=== PATIENT | female | born 1960 | race Two or more races ===

== ENCOUNTER 2024-07-10 23:45 | Emergency (ER) | payer OTHER ==
[2024-07-10 23:53] VITALS: RESP 18; TEMP 98.2
[2024-07-11 01:10] LABS: Influenza A Not Detected (Not Detectd); Influenza B Not Detected (Not Detectd); RSV Not Detected (Not Detectd)
--- NOTE | 2024-07-11 01:10 | ED ---
General Adult HPI - General Source: patient, RN notes reviewed Mode of arrival: wheelchair Limitations: no limitations <Juju Urena - Last Filed: 07/11/24 17:59> <Feliberto Warren - Last Filed: 07/15/24 13:23> - General Chief complaint: Upper Respiratory Infection Stated complaint: Eye irritation, scratchy throat Time Seen by Provider: 07/11/24 00:12 - History of Present Illness Initial comments: 63-year-old female presents to the emergency department for evaluation of not feeling well and throat irritation. Patient notes that she has not been feeling well for around a week. She states that she was started on antibiotic eyedrops a week ago for suspected conjunctivitis. She notes that she continues to have some left eye irritation. She states that 3 days ago she started experiencing some throat irritation and foreign body sensation. She denies any recent fever, chills. Admits to nausea without vomiting. (Juju Urena) - Related Data Allergies Allergy/AdvReac Type Severity Reaction Status Date / Time latex Allergy Rash/Hives Verified 07/10/24 23:53 hydromorphone [From Dilaudid] AdvReac Chest Pain Verified 07/10/24 23:53 ketorolac [From Toradol] AdvReac Chest Pain Verified 07/10/24 23:53 Review of Systems ROS Other: All systems not noted in ROS Statement are negative. <Juju Urena - Last Filed: 07/11/24 17:59> ROS Other: All systems not noted in ROS Statement are negative. <Feliberto Warren - Last Filed: 07/15/24 13:23> ROS Statement: Those systems with pertinent positive or pertinent negative responses have been documented in the HPI. Past Medical History Past Medical History: Hyperlipidemia, Hypertension Additional Past Medical History / Comment(s): "irregular heartbeat" History of Any Multi-Drug Resistant Organisms: None Reported Past Surgical History: Section, Hysterectomy, Joint Replacement, Orthopedic Surgery Additional Past Surgical History / Comment(s): partial hysterectomy Past Psychological History: Depression Smoking Status: Never smoker Past Alcohol Use History: None Reported Past Drug Use History: None Reported <Juju Urena - Last Filed: 07/11/24 17:59> General Exam Limitations: no limitations General appearance: alert, in no apparent distress Head exam: Present: atraumatic, normocephalic, normal inspection Eye exam: Present: normal appearance, PERRL, EOMI. Absent: scleral icterus, conjunctival injection, periorbital swelling ENT exam: Present: normal exam, mucous membranes moist Neck exam: Present: normal inspection, full ROM. Absent: tenderness, meningismus, lymphadenopathy Respiratory exam: Present: normal lung sounds bilaterally. Absent: respiratory distress, wheezes, rales, rhonchi, stridor Cardiovascular Exam: Present: regular rate, normal rhythm, normal heart sounds. Absent: systolic murmur, diastolic murmur, rubs, gallop, clicks Extremities exam: Present: normal inspection, full ROM, normal capillary refill. Absent: tenderness, pedal edema, joint swelling, calf tenderness Back exam: Present: normal inspection Neurological exam: Present: alert, oriented X3 Psychiatric exam: Present: normal affect, normal mood Skin exam: Present: warm, dry, intact, normal color. Absent: rash <Juju Urena - Last Filed: 07/11/24 17:59> Course Vital Signs 07/10/24 07/11/24 23:48 04:38 Temperature 98.2 F Pulse Rate 77 72 Respiratory 18 18 Rate Blood Pressure 160/83 117/65 O2 Sat by Pulse 97 97 Oximetry Medical Decision Making - Lab Data Result diagrams: 07/11/24 00:05 07/11/24 00:05 <Juju Urena - Last Filed: 07/11/24 17:59> - Lab Data Result diagrams: 07/11/24 00:05 07/11/24 00:05 <Feliberto Warren - Last Filed: 07/15/24 13:23> - Medical Decision Making Was pt. sent in by a medical professional or institution (, PA, BOX SEALING MACHINE CATCHER, urgent care, hospital, or snf...) When possible be specific @ -[No] Did you speak to anyone other than the patient for history (EMS, parent, family, police, friend...)? What history was obtained from this source @ -[No] Did you review nursing and triage notes (agree or disagree)? Why? @ -[I reviewed and agree with nursing and triage notes] Were old charts reviewed (outside hosp., previous admission, EMS record, old EKG, old radiological studies, urgent care reports/EKG's, snf records)? Report findings @ -[No old charts were reviewed] Differential Diagnosis (chest pain, altered mental status, abdominal pain women, abdominal pain men, vaginal bleeding, weakness, fever, dyspnea, syncope, headache, dizziness, GI bleed, back pain, seizure, CVA, palpatations, mental h ealth, musculoskeletal)? @ -[COVID, influenza, RSV, conjunctivitis, esophagitis, retropharyngeal a bscess, this list is not all inclusive] EKG interpreted by me (3pts min.). @ -[None] X-rays interpreted by me (1pt min.). @ -[X-ray soft tissue neck shows no acute process] CT interpreted by me (1pt min.). @ -[None done] U/S interpreted by me (1pt. min.). @ -[None done] What testing was considered but not performed or refused? (CT, X-rays, U/S, labs)? Why? @ -[None] What meds were considered but not given or refused? Why? @ -[None] Did you discuss the management of the patient with other professionals (professionals i.e. , PA, BOX SEALING MACHINE CATCHER, lab, RT, psych nurse, social service liaison, outplacement consultant, teacher, navigation officer, dependency case manager)? Give summary @ -[No] Was smoking cessation discussed for >3mins.? @ -[No] Was critical care preformed (if so, how long)? @ -[No] Were there social determinants of health that impacted care today? How? (Homelessness, low income, unemployed, alcoholism, drug addiction, transportation, low edu. Level, literacy, decrease access to med. care, long-term, rehab)? @ -[No] Was there de-escalation of care discussed even if they declined (Discuss DNR or withdrawal of care, Hospice)? DNR status @ -[No] What co-morbidities impacted this encounter? (DM, HTN, Smoking, COPD, CAD, Cancer, CVA, ARF, Chemo, Hep., AIDS, mental health diagnosis, sleep apnea, morbid obesity)? @ -[None] Was patient admitted / discharged? Hospital course, mention meds given and route, prescriptions, significant lab abnormalities, going to OR and other pertinent info. @ -[Patient presented to the emergency department for overall not feeling well and foreign body sensation in her throat when swallowing.Initially patient was tested for COVID, influenza, RSV which were negative. Laboratory studies were then obtained revealing no significant leukocytosis, hemoglobin 12.4; CMP on actionable at this time. X-ray of the soft tissue neck was obtained revealing no acute process. ] Undiagnosed new problem with uncertain prognosis? @ -[No] Drug Therapy requiring intensive monitoring for toxicity (Heparin, Nitro, Insulin, Cardizem)? @ -[No] Were any procedures done? @ -[No] Diagnosis/symptom? @ -[] Acute, or Chronic, or Acute on Chronic? @ -[default] Uncomplicated (without systemic symptoms) or Complicated (systemic symptoms)? @ -[default] Side effects of treatment? @ -[No] Exacerbation, Progression, or Severe Exacerbation? @ -[No] Poses a threat to life or bodily function? How? (Chest pain, [place], [place], pneumonia, PE, COPD, DKA, ARF, appy, cholecystitis, CVA, Diverticulitis, Homicidal, Suicidal, threat to staff... and all critical care pts) @ -[No] (Juju Urena) - Lab Data Lab Results 07/11/24 07/11/24 07/11/24 Range/Units 00:05 00:05 00:15 WBC 7.8 (3.8-10.6) k/uL RBC 3.95 (3.80-5.40) m/uL Hgb 12.4 (11.4-16.0) gm/dL Hct 37.4 (34.0-46.0) % MCV 94.7 (80.0-100.0) fL MCH 31.4 (25.0-35.0) pg MCHC 33.2 (31.0-37.0) g/dL RDW 12.1 (11.5-15.5) % Plt Count 263 (150-450) k/uL MPV 8.6 Neutrophils % 47 % Lymphocytes % 43 % Monocytes % 6 % Eosinophils % 2 % Basophils % 1 % Neutrophils # 3.7 (1.3-7.7) k/uL Lymphocytes # 3.4 (1.0-4.8) k/uL Monocytes # 0.5 (0-1.0) k/uL Eosinophils # 0.1 (0-0.7) k/uL Basophils # 0.0 (0-0.2) k/uL Sodium 135 L (137-145) mmol/L Potassium 4.8 (3.5-5.1) mmol/L Chloride 103 (98-107) mmol/L Carbon Dioxide 21 L (22-30) mmol/L Anion Gap 11 mmol/L BUN 15 (7-17) mg/dL Creatinine 0.67 (0.52-1.04) mg/dL Est GFR (CKD-EPI)AfAm >90 (>60 ml/min/1.73 sqM) Est GFR (CKD-EPI)NonAf >90 (>60 ml/min/1.73 sqM) Glucose 97 (74-99) mg/dL Calcium 9.4 (8.4-10.2) mg/dL Total Bilirubin 0.5 (0.2-1.3) mg/dL AST 34 (14-36) U/L ALT 20 (4-34) U/L Alkaline Phosphatase 94 (38-126) U/L Total Protein 7.5 (6.3-8.2) g/dL Albumin 4.2 (3.5-5.0) g/dL Influenza Type A (PCR) Not Detected (Not Detectd) Influenza Type B (PCR) Not Detected (Not Detectd) RSV (PCR) Not Detected (Not Detectd) SARS-CoV-2 (PCR) Not Detected (Not Detectd) Disposition Is patient prescribed a controlled substance at d/c from ED?: No <Juju Urena - Last Filed: 07/11/24 17:59> Is patient prescribed a controlled substance at d/c from ED?: No Time of Disposition: 04:12 <Feliberto Warren - Last Filed: 07/15/24 13:23> Clinical Impression: Foreign body sensation, throat, Pharyngitis Disposition: HOME SELF-CARE Condition: Stable Instructions (If sedation given, give patient instructions): Pharyngitis (ED) Referrals: Kartik Wan MD [Primary Care Provider] - 1-2 days Kranthi Hein MD [STAFF PHYSICIAN] - 1-2 days
[2024-07-11 02:11] LABS: Basophils % (A) 1 %; Eosinophils # (A) 0.1 k/uL (0-0.7); Eosinophils % (A) 2 %; HCT 37.4 % (34.0-46.0); HGB 12.4 gm/dL (11.4-16.0); Lymphocytes # (A) 3.4 k/uL (1.0-4.8); Lymphocytes % (A) 43 %; MCH 31.4 pg (25.0-35.0); MCHC 33.2 g/dL (31.0-37.0); MCV 94.7 fL (80.0-100.0); Mean Platelet Volume 8.6; Monocytes # (A) 0.5 k/uL (0-1.0); Monocytes % (A) 6 %; Neutrophils # (A) 3.7 k/uL (1.3-7.7); Neutrophils % (A) 47 %; Platelet Count 263 k/uL (150-450); RBC 3.95 m/uL (3.80-5.40); RDW 12.1 % (11.5-15.5); WBC 7.8 k/uL (3.8-10.6)
[2024-07-11 02:16] LABS: ALT 20 U/L (4-34); African American GFR (CKD) >90 (>60 ml/min/1.73 sqM); Albumin 4.2 g/dL (3.5-5.0); Anion Gap 11 mmol/L; Blood Urea Nitrogen 15 mg/dL (7-17); Calcium 9.4 mg/dL (8.4-10.2); Carbon Dioxide 21 mmol/L (22-30); Chloride 103 mmol/L (98-107); Glucose 97 mg/dL (74-99); Non-African American GFR(CKD) >90 (>60 ml/min/1.73 sqM); Sodium 135 mmol/L (137-145); Total Bilirubin 0.5 mg/dL (0.2-1.3); Total Protein 7.5 g/dL (6.3-8.2)
[2024-07-11 02:17] LABS: AST 34 U/L (14-36); Alkaline Phosphatase 94 U/L (38-126); Potassium 4.8 mmol/L (3.5-5.1)
[2024-07-11] MEDS: MAG HYDROX/AL HYDROX/SIMETH 30 ML CUP PO STA (02:29)
[2024-07-11] MEDS: LIDOCAINE VISCOUS 2% 15 ML CUP MUCOUS MEM ONE (02:29)
--- NOTE | 2024-07-11 04:23 | XR ---
EXAM: XR Soft Tissue Neck CLINICAL HISTORY: ITS.REASON XR Reason: painful swallowing TECHNIQUE: Frontal and lateral views of the soft tissues of the neck. COMPARISON: No relevant prior studies available. FINDINGS: Airway: Unremarkable. No abnormal narrowing. Bones/joints: No acute fracture. No dislocation. Soft tissues: Unremarkable. No abnormal soft tissue prominence. Normal epiglottis. IMPRESSION: No acute findings in the neck.
[2024-07-11 04:47] VITALS: BP 117/65; PULSE 72
== END 2024-07-11 04:47 | disposition home or self-care (01) ==
LOC: EC 23:45
DX: H57.8A2 Foreign body sensation, left eye (principal); J02.9 Acute pharyngitis, unspecified; Z91.040 Latex allergy status; Z88.5 Allergy status to narcotic agent
CPT/HCPCS: 36415; 70360; 80053; 85025; 87636; 99283